=== PATIENT | female | born 1990 | race Caucasian/White ===

== ENCOUNTER → 2020-10-18 14:08 | Outpatient (BNVA) | payer MEDICAID, SELFPAY | PROVIDERS: Family Provider Family Medicine; Visit Provider Obstetrics & Gynecology | DX: Z32.01 Encounter for pregnancy test, result positive (principal) | CPT/HCPCS: 81025 ==

== ENCOUNTER → 2020-11-02 13:12 | Outpatient (BNVA) | payer MEDICAID, SELFPAY | PROVIDERS: Family Provider Family Medicine; Visit Provider Nurse Practitioner Women's Health | DX: O20.0 Threatened abortion (principal); O36.80X0 Pregnancy with inconclusive fetal viability, not applicable or unspecified; O99.211 Obesity complicating pregnancy, first trimester; Z3A.10 10 weeks gestation of pregnancy | CPT/HCPCS: 84315; 84702; 85027; 86850; 86900 ==

== ENCOUNTER → 2020-12-11 13:31 | Outpatient (BNVA) | payer MEDICAID, SELFPAY | PROVIDERS: Family Provider Family Medicine; Visit Provider Obstetrics & Gynecology | DX: O99.211 Obesity complicating pregnancy, first trimester (principal); Z34.80 Encounter for supervision of other normal pregnancy, unspecified trimester | CPT/HCPCS: 80307; 82950; 84315; 86592; 86762; 86803; 87086; 87340; 87491; 87591; 87806 ==

== ENCOUNTER → 2021-01-03 11:37 | Outpatient (BNVA) | payer MEDICAID, SELFPAY | PROVIDERS: Family Provider Family Medicine; Visit Provider Obstetrics & Gynecology | DX: Z34.80 Encounter for supervision of other normal pregnancy, unspecified trimester (principal) | CPT/HCPCS: 81000 ==

== ENCOUNTER → 2021-01-05 11:05 | Outpatient (BNVA) | payer MEDICAID, SELFPAY | PROVIDERS: Family Provider Family Medicine; Visit Provider Nurse Practitioner Women's Health | DX: O99.212 Obesity complicating pregnancy, second trimester; Z3A.16 16 weeks gestation of pregnancy | CPT/HCPCS: 82105; 84315 ==

== ENCOUNTER → 2021-02-02 10:05 | Outpatient (BNVA) | payer MEDICAID, SELFPAY | PROVIDERS: Family Provider Family Medicine; Visit Provider Obstetrics & Gynecology | DX: Z34.92 Encounter for supervision of normal pregnancy, unspecified, second trimester (principal); Z3A.21 21 weeks gestation of pregnancy | CPT/HCPCS: 76805 ==

== ENCOUNTER → 2021-03-05 14:24 | Outpatient (BNVA) | payer MEDICAID, SELFPAY | PROVIDERS: Family Provider Family Medicine; Visit Provider Obstetrics & Gynecology | DX: Z34.80 Encounter for supervision of other normal pregnancy, unspecified trimester (principal) | CPT/HCPCS: 82950; 84315 ==

== ENCOUNTER 2021-03-10 18:40 | Emergency (ER) | payer MEDICAID, SELFPAY ==
[2021-03-10 18:51] VITALS: BP 125/78; PULSE 94; RESP 18; TEMP 36.9; O2SAT 99; BMI 45.3
[2021-03-10 20:22] VITALS: BP 132/83; PULSE 77; RESP 18; O2SAT 100
[2021-03-10 20:28] LABS: Add Urine Microscopic? YES; Bilirubin Urine Neg (Negative); Blood Urine Neg (Negative); Glucose Urine UA Norm (Normal); Ketones Urine Negative (Negative); Leukocyte Esterase Urine 2+ (Negative); Nitrate Urine Negative (Negative); Protein Urine Neg (Negative); Specific Gravity, Urine 1.015 (1.005-1.030); Urine Color Yellow (Yellow); Urobilinogen Urine Norm (Negative); pH Urine 7 (5-7)
[2021-03-10 20:30] LABS: Add Urine Culture? No; Bacteria Urine 3+ /hpf; RBC Urine 0-4 /hpf (0-2); Squamous Epithelial Cell Urine TOO NUMEROUS TO CNT /hpf (0-5); WBC Urine >100 /hpf (0-5)
[2021-03-10 20:47] VITALS: BP 104/70; PULSE 891; RESP 16; O2SAT 99
[2021-03-10] MEDS: lidocaine 2% viscous 15 ML, aluminum-mag hydrox-simethicon 30 ML, sucralfate oral liq 1 GM PO (20:57)
[2021-03-10 21:14] LABS: Basophils % 0.5 %; Eosinophils % 0.5 %; Hematocrit 33.5 % (37.0-47.0); Hemoglobin 10.3 g/dL (11.5-15.3); Lymphocytes # 1.5 10^3/uL (0.8-4.8); Lymphocytes % 17.2 %; Mean Corpuscular HGB Conc 30.7 g/dL (30.0-36.0); Mean Corpuscular Hemoglobin 25.5 pg (28.0-34.0); Mean Corpuscular Volume 82.9 fL (81-99); Mean Platelet Volume 11.3 fL (7.4-10.4); Monocytes # 0.3 10^3/uL (0.2-0.9); Monocytes % 3.9 %; Neutrophils # 6.85 10^3/uL (1.8-7.7); Neutrophils % 77.7 %; Nucleated Red Blood Cells % 0 %; Platelet Count 136 10^3/cmm (130-400); Red Blood Count 4.04 10^6/uL (4.1-5.3); Red Cell Distribution Width 13.3 % (12.1-15.1); White Blood Count 8.8 10^3/uL (4.0-10.0)
[2021-03-10 21:32] LABS: Alanine Aminotransferase < 5 U/L (0-33); Albumin Level 3.4 g/dL (3.5-5.2); Alkaline Phosphatase 80 IU/L (35-105); Anion Gap 13.4 (5-19); Aspartate Amino Transferase 8 U/L (0-32); Blood Urea Nitrogen 5 mg/dL (6-20); C Reactive Protein 20.1 mg/L (0.0-4.9); Calcium 8.2 mg/dL (8.5-10.5); Carbon Dioxide 20 mmol/L (22-29); Chloride 103 mmol/L (98-107); Globulin 3.5 g/dL (1.3-4.6); Glomerular Filtration Rate 264.9 mL/min (90-130); Glucose 86 mg/dL (65-115); Lipase 18 U/L (13-60); Osmolality Calculated 273 mOsm/kg (285-295); Potassium 3.4 mmol/L (3.5-5.1); Sodium 133 mmol/L (136-145); Total Bilirubin 0.2 mg/dL (0.15-1.2); Total Protein 6.9 g/dL (6.6-8.7)
[2021-03-10 21:43] LABS: Slide Review Slide Review Perform
[2021-03-10 21:52] LABS: Charge for UA Resulting for Rev
[2021-03-10 22:05] LABS: Add Urine Microscopic? YES; Bilirubin Urine Neg (Negative); Blood Urine Neg (Negative); Glucose Urine UA Norm (Normal); Ketones Urine Negative (Negative); Leukocyte Esterase Urine Trace (Negative); Nitrate Urine Negative (Negative); Protein Urine Neg (Negative); Urine Appearance Clear (CLEAR); Urine Color Yellow (Yellow); Urobilinogen Urine Norm (Negative); pH Urine 6 (5-7)
--- NOTE | 2021-03-10 22:39 | ED_ITS ---
HPI - Abdominal Pain General: Chief Complaint: Abdominal Pain Stated Complaint: gallbladder issue 26 weeks Time Seen by Provider: 03/10/21 20:22 Source: patient and family (mother) Mode of arrival: ambulatory Limitations: no limitations History of Present Illness: HPI narrative: This is a 30-year-old female patient 3 para 2 at 26 weeks gestation who presents to the emergency department with sudden onset upper abdominal pain. The pain woke her up from sleep this evening and she initially thought the pain would go but the pain did not get better so she came to the emergency department to be evaluated. The pain is located in the upper abdomen and radiates to both flanks. No nausea or vomiting. No diarrhea or constipation. No fever. No other symptoms. She has a prior history of gallbladder disease. No prior history of kidney disease MD elicited complaint: abdominal pain Pertinent past history: none Onset (ago): hour(s) (3) Pain Consistency: constant Location: Epigastric and LUQ Severity: severe Quality: stabbing Radiation: bilateral flank Migration to: no migration Exacerbating factors: nothing Relieving factors: nothing Associated Symptoms: Denies anorexia, belching, bloating, change in bowel habits, change in stool character, chills, coffee ground emesis, constipation, GI cramping, diarrhea, dyspepsia, dysuria, excessive flatus, fever(s), heartburn, hematochezia, hematuria, hematemesis, fecal incontinence, loose stools, melena, nausea, poor appetite, syncope and vomiting Related Data: Date of Last Menstrual Period: 09/25/20 Review of Systems General: Reports: 10 or more systems reviewed and unremarkable except in HPI and below Const: Denies: fever(s) or chills Card: Denies: syncope GI: Denies: nausea, vomiting, hematemesis, coffee ground emesis, heartburn, diarrhea, constipation, bloating, GI cramping, belching, excessive flatus, fecal incontinence, change in bowel habits, change in stool character, hematochezia or melena : Denies: dysuria or hematuria PFS ED PFSH: Medical History No pertinent past medical history neghx: htn,dm,thyroid,dvt/pe,herpes ----denies partner with herpes Surgical History No pertinent past surgical history Family History Father Hypertension Family/Other Hypertension Paternal Aunt Denies family history of Colon cancer Ovarian cancer Diabetes Heart disease Breast cancer Uterine cancer Thyroid disease Stroke Social History Smoking and tobacco status: never smoked Alcohol intake: never Female Reproductive History: Date of last menstrual period: 09/25/20 Physical Exam Const: COMMON NORMALS: no acute distress, average body habitus, patient oriented x3, no limitations, healthy appearing, alert and well nourished HENMT: COMMON NORMALS: normocephalic, atraumatic and moist oral mucous membranes HEAD & SCALP: normocephalic and atraumatic Neck/C-Spine: COMMON NORMALS: no meningeal signs and no JVD Resp: COMMON NORMALS: normal respiratory effort, No retractions, No use of accessory muscles, clear to auscultation bilaterally and percussion normal AUSCULTATION: clear to auscultation bilaterally PERCUSSION: percussion normal Cardio: COMMON NORMALS: no JVD, regular rate, regular rhythm, S1 normal heart sound present, S2 normal heart sound present, No gallops present (Cardio), No clicks present (Cardio), No murmurs present (Cardio), No rub (Cardio) and Peripheral pulses 2+ throughout RATE: regular rate RHYTHM: regular rhythm HEART SOUNDS: S1 normal heart sound present and S2 normal heart sound present PERIPHERAL PULSES: Peripheral pulses 2+ throughout GI: COMMON NORMALS: Normal to inspection, nondistended, normoactive bowel sounds present, Soft to palpation, No hepatosplenomegaly present, no masses and no bruits PALPATION: Yes Soft to palpation, Yes Tenderness to palpation present (GI) (Epigastric) Details: LUQ and Yes No hepatosplenomegaly present Extremity: COMMON NORMALS: normal to inspection, full ROM, capillary refill normal, no calf tenderness and no pedal edema Neuro: COMMON NORMALS: patient oriented x3 SENSORIUM/ORIENTATION: Yes alert MENINGEAL SIGNS: Yes no meningeal signs Course Reevaluation(s): Reevaluation #1: Discussed her lab findings with her, negati ve for acute findings other than possible UTI. Pain improved significantly following a GI cocktail. I believe she has gastritis, and that is a cause for her abdominal pain. Since she also has an incidental UTI we will treat with antibiotics. She voiced understanding and is in agreement with the plan Time: 22:39 Vital Signs: Vital signs: Vital Signs Temperature 98.4 F 03/10/21 18:51 Pulse Rate 91 03/10/21 22:57 Respiratory Rate 15 03/10/21 22:57 Blood Pressure 120/77 03/10/21 22:57 Pulse Oximetry 91 03/10/21 22:57 MDM - Abdominal Pain MDM Narrative: Medical decision making narrative: 30-year-old female patient who is 26 weeks and presents with upper abdominal pain that started this evening. Evaluation in the emergency department is unremarkable and pain improved with a GI cocktail. She probably has acute gastritis and she also had an incidental finding of a UTI. She was treated for the UTI. 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 Medical Records: Attestation: I reviewed the patient's medical records. Lab Data: Attestation: I reviewed the patient's lab results. Labs: Lab Results 03/10/21 03/10/21 03/10/21 Range/Units 20:00 21:05 21:05 WBC 8.8 (4.0-10.0) 10^3/ uL RBC 4.04 L (4.1-5.3) 10^6/u L Hgb 10.3 L (11.5-15.3) g/dL Hct 33.5 L (37.0-47.0) % MCV 82.9 (81-99) fL MCH 25.5 L (28.0-34.0) pg MCHC 30.7 (30.0-36.0) g/dL RDW 13.3 (12.1-15.1) % Plt Count 136 (130-400) 10^3/c mm MPV 11.3 H (7.4-10.4) fL Neut % (Auto) 77.7 % Lymph % (Auto) 17.2 % Mccreary % (Auto) 3.9 % Eos % (Auto) 0.5 % Baso % (Auto) 0.5 % Neut # (Auto) 6.85 (1.8-7.7) 10^3/u L Lymph # (Auto) 1.5 (0.8-4.8) 10^3/u L Mccreary # (Auto) 0.3 (0.2-0.9) 10^3/u L Eos # (Auto) 0.0 (0.0-0.8) 10^3/u L Baso # (Auto) 0.0 (0.0-0.1) 10^3/u L Nucleated RBC % (a uto) 0 % Nucleated RBCs # 0.0 /100WBC Sodium 133 L (136-145) mmol/L Potassium 3.4 L (3.5-5.1) mmol/L Chloride 103 (98-107) mmol/L Carbon Dioxide 20 L (22-29) mmol/L Anion Gap 13.4 (5-19) BUN 5 L (6-20) mg/dL Creatinine 0.3 L (0.5-0.9) mg/dL GFR Calculation 264.9 H (90-130) mL/min Glucose 86 (65-115) mg/dL Calculated Osmolal ity 273 L (285-295) mOsm/k g Calcium 8.2 L (8.5-10.5) mg/dL Total Bilirubin 0.2 (0.15-1.2) mg/dL AST 8 (0-32) U/L ALT < 5 (0-33) U/L Alkaline Phosphata se 80 (35-105) IU/L C-Reactive Protein 20.1 H (0.0-4.9) mg/L Total Protein 6.9 (6.6-8.7) g/dL Albumin 3.4 L (3.5-5.2) g/dL Globulin 3.5 (1.3-4.6) g/dL Lipase 18 (13-60) U/L Urine Color Yellow (Yellow) Urine Appearance Sl cloudy A (CLEAR) Urine pH 7 (5-7) Ur Specific Gravit y 1.015 (1.005-1.030) Urine Protein Neg (Negative) Urine Glucose (UA) Norm (Normal) Urine Ketones Negative (Negative) Urine Blood Neg (Negative) Urine Nitrate Negative (Negative) Urine Bilirubin Neg (Negative) Urine Urobilinogen Norm (Negative) mg/dL Ur Leukocyte Yuliya ase 2+ H (Negative) Urine RBC 0-4 H (0-2) /hpf Urine WBC >100 H (0-5) /hpf Ur Squamous Epith Cells Too numerous to c nt H (0-5) /hpf Amorphous Sediment Not Reportable Urine Bacteria 3+ H (NONE) /hpf 03/10/21 Range/Units 21:48 WBC (4.0-10.0) 10^3/ uL RBC (4.1-5.3) 10^6/u L Hgb (11.5-15.3) g/dL Hct (37.0-47.0) % MCV (81-99) fL MCH (28.0-34.0) pg MCHC (30.0-36.0) g/dL RDW (12.1-15.1) % Plt Count (130-400) 10^3/c mm MPV (7.4-10.4) fL Neut % (Auto) % Lymph % (Auto) % Mccreary % (Auto) % Eos % (Auto) % Baso % (Auto) % Neut # (Auto) (1.8-7.7) 10^3/u L Lymph # (Auto) (0.8-4.8) 10^3/u L Mccreary # (Auto) (0.2-0.9) 10^3/u L Eos # (Auto) (0.0-0.8) 10^3/u L Baso # (Auto) (0.0-0.1) 10^3/u L Nucleated RBC % (a uto) % Nucleated RBCs # /100WBC Sodium (136-145) mmol/L Potassium (3.5-5.1) mmol/L Chloride (98-107) mmol/L Carbon Dioxide (22-29) mmol/L Anion Gap (5-19) BUN (6-20) mg/dL Creatinine (0.5-0.9) mg/dL GFR Calculation (90-130) mL/min Glucose (65-115) mg/dL Calculated Osmolal ity (285-295) mOsm/k g Calcium (8.5-10.5) mg/dL Total Bilirubin (0.15-1.2) mg/dL AST (0-32) U/L ALT (0-33) U/L Alkaline Phosphata se (35-105) IU/L C-Reactive Protein (0.0-4.9) mg/L Total Protein (6.6-8.7) g/dL Albumin (3.5-5.2) g/dL Globulin (1.3-4.6) g/dL Lipase (13-60) U/L Urine Color Yellow (Yellow) Urine Appearance Clear (CLEAR) Urine pH 6 (5-7) Ur Specific Gravit y 1.020 (1.005-1.030) Urine Protein Neg (Negative) Urine Glucose (UA) Norm (Normal) Urine Ketones Negative (Negative) Urine Blood Neg (Negative) Urine Nitrate Negative (Negative) Urine Bilirubin Neg (Negative) Urine Urobilinogen Norm (Negative) mg/dL Ur Leukocyte Yuliya ase Trace H (Negative) Urine RBC (0-2) /hpf Urine WBC (0-5) /hpf Ur Squamous Epith Cells (0-5) /hpf Amorphous Sediment Urine Bacteria (NONE) /hpf Discharge Plan Discharge Patient Disposition: Home Clinical Impression: Acute gastritis Qualifiers: Gastritis type: unspecified gastritis Gastritis bleeding: without bleeding Qualified Code(s): K29.00 - Acute gastritis without bleeding UTI (urinary tract infection) during Qualifiers: Trimester: third trimester Qualified Code(s): O23.43 - Unspecified infection of urinary tract in , third trimester Condition: Stable Prescriptions: New Augmentin 500-125 mg tablet 1 tab PO BID Qty: 14 RF: 0 Continued prenat.vits,carissa,[id number] Tablet 1 tab PO DAILY RF: 0 Discharge Orders: Discharge ED (Routine); Ordered 03/10/21 Ordered By: Laura Small Referrals: Marisol Dallas MD [Primary Care Provider] - 1-3 days Discharge Diet: As Directed Discharge Activity: Increase activity as tolerated Patient Instructions: Gastritis (ED), Urinary Tract Infection in Women (ED), Diet for Ulcers and Gastritis (ED) Activity Restrictions/Additional Instructions: Return for any new or worsening symptoms. Follow-up with your primary care provider within 3 days. Take your medications as prescribed. Follow the diet as advised. Coding Level of Care Code ED Fish Cake Maker for Janna Aviles
[2021-03-10] MEDS: cefTRIAXone 1,000 MG in lidocaine 1% 2.1 ML 2.1 MG IM (22:51)
[2021-03-10 22:57] VITALS: BP 120/77; PULSE 91; RESP 15; O2SAT 91
== END 2021-03-10 22:58 | disposition home or self-care (01) ==
PROVIDERS: Emergency Provider Family Medicine; PCP Family Medicine
DX: O23.42 Unspecified infection of urinary tract in pregnancy, second trimester (principal); O26.892 Other specified pregnancy related conditions, second trimester; K29.00 Acute gastritis without bleeding; Z3A.26 26 weeks gestation of pregnancy
CPT/HCPCS: 80053; 81001; 81003; 83690; 85025; 86140; 96372; 99283; J0696

== ENCOUNTER → 2021-03-26 14:42 | Outpatient (BNVA) | payer MEDICAID, SELFPAY | PROVIDERS: PCP Family Medicine; Visit Provider Obstetrics & Gynecology | DX: Z34.80 Encounter for supervision of other normal pregnancy, unspecified trimester (principal) | CPT/HCPCS: 84315; 85025 ==

== ENCOUNTER 2021-05-04 17:30 | Outpatient (CLI) | payer MEDICAID, SELFPAY ==
[2021-05-04 17:30] VITALS: BMI 38.0
[2021-05-04 17:54] VITALS: BP 125/70; PULSE 96
[2021-05-04 18:21] VITALS: BP 128/65; PULSE 85
[2021-05-04 18:32] LABS: Bilirubin Urine Neg (Negative); Blood Urine Neg (Negative); Glucose Urine UA Norm (Normal); Ketones Urine Negative (Negative); Leukocyte Esterase Urine Negative (Negative); Nitrate Urine Negative (Negative); Protein Urine Neg (Negative); Squamous Epithelial Cell Urine 0-4 /hpf (0-5); Urine Appearance Clear (CLEAR); Urine Color Yellow (Yellow); Urobilinogen Urine Norm (Negative); pH Urine 6 (5-7)
[2021-05-04 18:33] LABS: Add Urine Culture? No
== END 2021-05-04 18:45 | disposition home or self-care (01) ==
LOC: OPOB 17:38 → OBGYN 17:39
PROVIDERS: PCP Family Medicine; Visit Provider Obstetrics & Gynecology
DX: O26.899 Other specified pregnancy related conditions, unspecified trimester (principal); Z3A.00 Weeks of gestation of pregnancy not specified; R52 Pain, unspecified
CPT/HCPCS: 59025; 81001; 99211

== ENCOUNTER 2021-05-28 16:10 | Outpatient (CLI) | payer MEDICAID, SELFPAY ==
[2021-05-28 16:23] VITALS: BP 114/70; PULSE 100
[2021-05-28 16:24] VITALS: RESP 18; TEMP 36.8
[2021-05-28 16:25] VITALS: BMI 46.5
[2021-05-28 16:53] VITALS: BP 116/65; PULSE 95
[2021-05-28 17:23] VITALS: BP 116/72; PULSE 104
--- NOTE | 2021-05-28 17:40 | P.PCN_ITS ---
Procedure/Consent Procedure Narrative: NONSTRESS TEST: [place] of [place] [facility] [place] [facility] [place] Indication: 30-year-old 4 para 2-0-1-2 at 37 weeks and 2 days, abdominal pain, Date and time of test: 05/28/2021, 5:15 PM Baseline: 135 Variability: Moderate variability Accelerations: Accelerations present Decelerations: No decelerations Tocometry: No contractions INTERPRETATION: NST reactive, continue kick counts
[2021-05-28 17:54] VITALS: BP 116/72; PULSE 104; RESP 18; TEMP 36.8
== END 2021-05-28 17:55 | disposition home or self-care (01) ==
LOC: OPOB 16:15 → OBGYN 16:15
PROVIDERS: Absent Provider Obstetrics & Gynecology; PCP Family Medicine; Visit Provider Obstetrics & Gynecology
DX: O26.899 Other specified pregnancy related conditions, unspecified trimester (principal); Z3A.00 Weeks of gestation of pregnancy not specified; R10.9 Unspecified abdominal pain
CPT/HCPCS: 59025; 83986; 84315; 87081; 99211

== ENCOUNTER 2021-06-05 14:50 | Outpatient (CLI) | payer MEDICAID, SELFPAY ==
[2021-06-05 15:00] VITALS: BMI 46.0
[2021-06-05 15:06] VITALS: BP 109/55; PULSE 94; RESP 16; TEMP 36.4
[2021-06-05 15:11] VITALS: RESP 16
[2021-06-05 15:36] VITALS: BP 112/61; PULSE 99
[2021-06-05 16:07] VITALS: BP 129/68; PULSE 93
[2021-06-05 16:36] VITALS: BP 140/71; PULSE 90
[2021-06-05 16:59] VITALS: BP 107/61; PULSE 90
== END 2021-06-05 17:02 | disposition home or self-care (01) ==
LOC: OPOB 14:58 → OBGYN 15:00
PROVIDERS: PCP Family Medicine; Visit Provider Obstetrics & Gynecology
DX: O36.8390 Maternal care for abnormalities of the fetal heart rate or rhythm, unspecified trimester, not applicable or unspecified (principal); Z3A.00 Weeks of gestation of pregnancy not specified
CPT/HCPCS: 59025; 84315; 99211

== ENCOUNTER 2021-06-09 18:12 | Outpatient (CLI) | payer MEDICAID, SELFPAY ==
[2021-06-09] VITALS (35 sets, daily range): BP systolic 111–150; BP diastolic 59–81; PULSE 84–103; TEMP 36.9; O2SAT 87–100; BMI 46.3
[2021-06-09 18:55] LABS: Basophils % 0.2 %; Eosinophils % 0.2 %; Hematocrit 35.4 % (37.0-47.0); Lymphocytes # 0.8 10^3/uL (0.8-4.8); Lymphocytes % 19.5 %; Mean Corpuscular HGB Conc 31.1 g/dL (30.0-36.0); Mean Corpuscular Hemoglobin 24.2 pg (28.0-34.0); Mean Platelet Volume 10.4 fL (7.4-10.4); Monocytes # 0.2 10^3/uL (0.2-0.9); Neutrophils # 3.18 10^3/uL (1.8-7.7); Neutrophils % 75.6 %; Nucleated Red Blood Cells % 0 %; Platelet Count 150 10^3/cmm (130-400); Red Blood Count 4.54 10^6/uL (4.1-5.3); Red Cell Distribution Width 15.4 % (12.1-15.1); White Blood Count 4.2 10^3/uL (4.0-10.0)
[2021-06-09 19:15] LABS: SARS Covid-2 Antigen Positive (Negative)
[2021-06-09] MEDS: lactated ringers 1,000 ML 999 ML IV (19:15)
[2021-06-09 19:24] LABS: Alanine Aminotransferase 15 U/L (0-33); Albumin Level 3.1 g/dL (3.5-5.2); Alkaline Phosphatase 194 IU/L (35-105); Anion Gap 16.8 (5-19); Aspartate Amino Transferase 24 U/L (0-32); Blood Urea Nitrogen 6 mg/dL (6-20); Carbon Dioxide 19 mmol/L (22-29); Chloride 107 mmol/L (98-107); Globulin 3.5 g/dL (1.3-4.6); Glomerular Filtration Rate 85.4 mL/min (90-130); Glucose 79 mg/dL (65-115); Osmolality Calculated 285 mOsm/kg (285-295); Potassium 3.8 mmol/L (3.5-5.1); Sodium 139 mmol/L (136-145); Total Bilirubin 0.3 mg/dL (0.15-1.2); Total Protein 6.6 g/dL (6.6-8.7)
[2021-06-09 19:30] LABS: Bilirubin Urine Neg (Negative); Blood Urine Neg (Negative); Glucose Urine UA Norm (Normal); Ketones Urine 2+ (Negative); Nitrate Urine Negative (Negative); Protein Urine Trace (Negative); Specific Gravity, Urine 1.015 (1.005-1.030); Urine Appearance Clear (CLEAR); Urine Color Yellow (Yellow); Urobilinogen Urine 1 mg/dL (Negative); pH Urine 6 (5-7)
[2021-06-09 19:31] LABS: Add Urine Microscopic? YES; Leukocyte Esterase Urine Trace (Negative)
[2021-06-09 19:35] LABS: Add Urine Culture? No; Bacteria Urine 2+ /hpf; Mucus Urine 2+ /hpf; RBC Urine 0-4 /hpf (0-2); Squamous Epithelial Cell Urine 25-40 /hpf (0-5); WBC Urine 15-25 /hpf (0-5)
[2021-06-09] MEDS: ondansetron 2 mg/ML SDV 2 mL 8 MG IVP (20:14)
--- NOTE | 2021-06-09 21:15 | PC.NURSE ---
This nurse educated pt on isolating at home, mask wearing, call local health department for recommendation on how long to isolate. Stated that she needs to call clinic on friday to inform of covid positive results so that her appointments can to adjusted. Educated about bland diet, small frequent meals and plenty of fluid. Educated that if she experience increase in N/V, SOB or fever she should be seen in the ER. Informed pt that Phenergan script will be called into her preferred pharmacy. Educated on Phenergan, dose, how often she can take
--- NOTE | 2021-06-11 09:12 | PC.NURSE ---
Called in prescription for phenergan 25 mg PO Q6H PRN for nausea. dispense 20 tabs, no refills. Called in to [facility] pharmacy. Ordering provider Dr. Lopez.
[2021-06-12 03:57] LABS: Quest SARS-CoV-2 RNA DETECTED (NOT DETECTED)
== END 2021-06-09 21:35 | disposition home or self-care (01) ==
LOC: OPOB 18:23 → OBGYN 18:24
PROVIDERS: PCP Family Medicine; Visit Provider Obstetrics & Gynecology
DX: O26.899 Other specified pregnancy related conditions, unspecified trimester (principal); Z3A.00 Weeks of gestation of pregnancy not specified; R50.9 Fever, unspecified; R11.2 Nausea with vomiting, unspecified
CPT/HCPCS: 36415; 59025; 80053; 81001; 85025; 87426; 87635; 96361; 96374; 99211; J2405

== ENCOUNTER 2021-06-13 06:32 | Inpatient (IN) | payer MEDICAID, SELFPAY ==
[2021-06-13] VITALS (126 sets, daily range): BP systolic 99–144; BP diastolic 55–86; PULSE 86–139; RESP 16–25; TEMP 36.1–38; O2SAT 95–100; BMI 43.1
[2021-06-13] MEDS: lactated ringers 1,000 ML 999 ML IV ×3 (07:02→10:42)
[2021-06-13 07:45] LABS: Basophils % 0.3 %; Hematocrit 36.5 % (37.0-47.0); Hemoglobin 11.4 g/dL (11.5-15.3); Lymphocytes % 16.6 %; Mean Corpuscular HGB Conc 31.2 g/dL (30.0-36.0); Mean Corpuscular Hemoglobin 24.2 pg (28.0-34.0); Mean Corpuscular Volume 77.5 fL (81-99); Mean Platelet Volume 10.8 fL (7.4-10.4); Monocytes # 0.2 10^3/uL (0.2-0.9); Monocytes % 4.2 %; Neutrophils # 4.47 10^3/uL (1.8-7.7); Nucleated Red Blood Cells % 0 %; Platelet Count 148 10^3/cmm (130-400); Red Blood Count 4.71 10^6/uL (4.1-5.3); Red Cell Distribution Width 15.9 % (12.1-15.1); White Blood Count 5.7 10^3/uL (4.0-10.0)
--- NOTE | 2021-06-13 07:47 | PM.OPHPUD ---
Labor & Delivery H&P Update Date of Procedure: June 13, 2021 Date H&P Performed: 06/05/21 H&P update information: I have reviewed H&P completed within last 30 days, I have examined patient prior to procedure and Changes to prior documentation as noted here (cervix is now 5/80/-2. she is in active labor. She is also covid positive 06/09/21) Admission Diagnosis:
[2021-06-13 08:08] LABS: Slide Review Slide Review Perform
[2021-06-13] MEDS: dextrose 5%-lactated ringers 1,000 ML 125 ML IV (09:02)
--- NOTE | 2021-06-13 09:13 | ANES.PREANE2 ---
Pre-Anesthetic Assessment Pre-Anesthetic Assessment: Height/Weight: Height 1.57 m Weight 107.048 kg Temp Pulse BP Pulse Ox 97.3 F L 112 H 110/55 98 06/13/21 09:06 06/13/21 09:10 06/13/21 09:04 06/13/21 09:10 Was Beta Ziyad taken within 24 hours: N/A Was Clonidine taken within 24 hours: N/A Social: Social History: No alcohol and No tobacco Exam: Pre-Anes Outpt Exam: alert, oriented x 3, clear to auscultation bilaterally and regular rate & rhythm Airway: Submandibular: WNL Cervical ROM: WNL MP: 2 Dentition: Full Pulmonary: Pulmonary: Cough Comments: Covid-19 CV/HEM: CV/HEM: Anemia Metabolic: Metabolic: Morbid obesity Anesthetic Plan: ASA status: 2 Anesthesia: Regional (specify below) (Labor epidural) Risk of > 500 ml blood loss (7ml/kg in children): No Meds/Allergies Current Medications: Current Medications Generic Name Dose Route Start Last Admin Trade Name Freq PRN Reason Stop Dose Admin Dextrose/Lactated Ringer's 1,000 mls @ 125 m ls/hr 06/13/21 06:28 06/13/21 09:02 Dextrose 5%-Lact ated Ringers IV 125 mls/hr .Q8H PRN Administration Labor Lactated Ringer's 1,000 mls @ 999 m ls/hr 06/13/21 06:28 06/13/21 09:09 Lactated Ringers IV Infused .Q1H1M PRN Infusion Per L&D Rescitati on Protocol Ropivacaine 200 mg in 100 mls @ 13 mls/hr 06/13/21 06:34 06/13/21 08:40 Naropin Premix EPIDURAL 13 mls/hr .Q7H42M PRN Administration ANESTHESIA Lactated Ringer's 1,000 mls @ 999 m ls/hr 06/13/21 06:34 06/13/21 08:06 Lactated Ringers IV Infused .Q1H1M PRN Infusion See label comment s PFSH Anesthesia PFSH: Medical History No pertinent past medical history neghx: htn,dm,thyroid,dvt/pe,herpes ----denies partner with herpes Surgical History No pertinent past surgical history Family History Father Hypertension Family/Other Hypertension Paternal Aunt Denies family history of Colon cancer Ovarian cancer Diabetes Heart disease Breast cancer Uterine cancer Thyroid disease Stroke Social History (Updated 06/05/21 @ 14:17 by Mabel James RN) Smoking and tobacco status: never smoked Alcohol intake: never Female Reproductive History: Date of last menstrual period: 09/25/20 : 4 Data Anesthesia CBC & Chem 7: 06/13/21 07:10 Other Labs: Laboratory Results - last 48 hr 06/13/21 07:10 WBC 5.7 RBC 4.71 Hgb 11.4 L Hct 36.5 L MCV 77.5 L MCH 24.2 L MCHC 31.2 RDW 15.9 H Plt Count 148 MPV 10.8 H Neut % (Auto) 78.0 Lymph % (Auto) 16.6 Alexander % (Auto) 4.2 Eos % (Auto) 0.0 Baso % (Auto) 0.3 Neut # (Auto) 4.47 Lymph # (Auto) 1.0 Alexander # (Auto) 0.2 Eos # (Auto) 0.0 Baso # (Auto) 0.0 Nucleated RBC % (auto) 0 Nucleated RBCs # 0.0 Cardiac Studies: No Data to Display
--- NOTE | 2021-06-13 09:14 | ANES.PROC ---
Anesthesia Procedures Procedure/Date: 06/13/21 Epidural: Time Out Performed: Yes Consents Signed: Procedure Consent Consent: requested by attending/covering physician, from patient, risks and benefits reviewed and patient agrees to proceed Lumbar Level: L3-L4 Epidural position: sitting Epidural procedure: sterile prep of area, 1% lidocaine to numb the area, 18 g needle, neg for paresthesia, test dose given, 1.5% xylocaine 1:200k epi, placed PCEA, no systemic response, sterile dressing applied and 0.2% Ropiavacaine @ mls/hr (13) Additional Comments: EMILIO at 6cm, cath at 11cm. bolused 5mls 2% lido.
[2021-06-13] MEDS: cetylpyridinium Lozenge 1 EACH MUCOUS MEM ×2 (09:53→17:40)
[2021-06-13] MEDS: guaiFENesin 100 mg/5 mL UDC 10 mL 200 MG PO ×3 (09:53→21:25)
[2021-06-13] MEDS: acetaminophen 325 mg Tablet 650 MG PO (10:57)
[2021-06-13] MEDS: oxytocin 30 UNIT/500 ML BAG IV (11:44)
--- NOTE | 2021-06-13 11:53 | PC.NURSE ---
1134- notified to be at delivery per . 1140- Arrives to bedside
--- NOTE | 2021-06-13 14:49 | PM.DELIVERY ---
Delivery Note: Date of delivery: June 13, 2021 Pre-delivery diagnoses: iup at 39 4/7 weeks, obesity, anemia, covid 19 + Post-delivery diagnoses: same- delivered Procedure: Op report anesthesia: Epidural Delivering Physician: mel Estimated blood loss (mL): 20 Findings: term female in the cephalic presentation with a single nuchal cord, shoulder and body cord Pre-Delivery Course: The patient was admitted in active labor. She tested positive for covid 19 over the weekend. When she was about 7 cm, she began to have large, deep decelerations. she was repositioned and it helped for a time and then, it occurred after every contraction. I attempted SROM, but was unable to perform it due to the high station of the baby. She was 8 cm at this time. We set her up and began pushing with the hope that moving the baby down would stop the decelerations. The remainder of the time, the baby had good variability with accelerations. It was only after a contraction that the heart rate would drop. The cervix didn't change and the patient was put in high fowlers and then the peanut ball. Finally, she had complete cervical dilation. the baby continued to have these deep decelerations. Delivery: The patient had complete cervical dilation and began to push. The head delivered in the IVANA position over an intact perineum under epidural anesthesia. The nose and mouth were bulb suctioned. A single nuchal cord was reduced at the perineum. The shoulders and body delivered atraumatically and there was an additional shoulder and body cord present at delivery. The baby was placed onto the mother's abdomen. The cord was clamped and cut. . The placenta delivered spontaneously. It was inspected and found to be intact. Due to the maternal covid 19 positivity, the placenta was sent to pathology. Inspection of the perineum revealed it to be intact. Estimated blood loss 20. Apgars on baby were 8 at 1 minute and 9 at 5 minutes. Weight of baby is 6 pounds 13 ounces. Mother and baby were stable post delivery. Coding Level of Care Code Acute Web Services Professional for Janna Aviles
[2021-06-13] MEDS: ibuprofen 800 mg tablet PO ×2 (16:18→21:24)
--- NOTE | 2021-06-13 17:03 | ANE.PACU2 ---
Inpatient post-anesthesia follow up: Airway intact: Yes Vital signs: Temperature 98.8 F Pulse Rate 104 Respiratory Rate 18 Blood Pressure 135/65 Pulse Oximetry 98 Oxygen Delivery Me thod Non-Rebreather Oxygen Flow Rate 10 Fraction of Inspir ed Oxygen Hydration adequate: Yes Nausea and vomiting: No Pain level: 1 Mental status: Baseline
[2021-06-13] MEDS: docusate sodium 100 mg Capsule PO (17:40)
[2021-06-14] VITALS (9 sets, daily range): BP systolic 120–129; BP diastolic 72–83; PULSE 83–96; RESP 16; TEMP 35–36.8; O2SAT 95–96
[2021-06-14] MEDS: guaiFENesin 100 mg/5 mL UDC 10 mL 200 MG PO ×2 (01:38→09:28)
[2021-06-14 01:53] LABS: Hematocrit 32.2 % (37.0-47.0); Hemoglobin 10.1 g/dL (11.5-15.3); Mean Corpuscular HGB Conc 31.4 g/dL (30.0-36.0); Mean Corpuscular Hemoglobin 24.4 pg (28.0-34.0); Mean Corpuscular Volume 77.8 fL (81-99); Mean Platelet Volume 10.2 fL (7.4-10.4); Platelet Count 145 10^3/cmm (130-400); Red Blood Count 4.14 10^6/uL (4.1-5.3); Red Cell Distribution Width 16.1 % (12.1-15.1); White Blood Count 6.7 10^3/uL (4.0-10.0)
[2021-06-14] MEDS: prenatal vitamin Capsule 1 CAP PO (09:27)
[2021-06-14] MEDS: ibuprofen 800 mg tablet PO (09:28)
[2021-06-14] MEDS: docusate sodium 100 mg Capsule PO (09:28)
[2021-06-14 10:32] LABS: ABG PCO2 34.8 mmHg (35-45); ABG PH Result 7.41 (7.35-7.45); Arterial Blood Gas Hematocrit 31.4 % (37-47); Blood Gas Allen Test Pos; Blood Gas Operator Identificat MONRO; Blood Gas Sample Site Radial, left; Blood Gas Sample Type Arterial; HCO3 ABG 22.2 mmol/L (22-26); Oxygen Device ROOM AIR; PO2 ABG 72.7 mmHg (80.0-100.0)
--- NOTE | 2021-06-14 11:18 | P.CONIM_ITS ---
Providers/Reason For Consult Consulting Physician/Specialty*: Beau Owusu MD, hospitalist medicine Reason for Consult*: Covid positive Attending Physician: Ladan Leo MD Primary Care Provider: Marisol Dallas MD History of Present Illness History of Present Illness Karen Hardy is a 30 year old female who presented gravid to labor and delivery in active labor and delivered a baby girl by spontaneous vaginal delivery at 39- 4/7 weeks. She was noted to have a positive Covid test on screening. She had been ill perhaps 1 week. She had reported some mild shortness of breath prior to delivery at home with exertion, coughing, low-grade temperatures. She reports her has been ill as well. She reports that currently she feels very good, and has been up and about the room without any significant shortness of breath. Review of Systems General: Reports: 10 or more systems reviewed and unremarkable except in HPI and below Const: Reports: fever(s) (Although none currently) and chills Eyes: Denies: change in vision ENMT: Denies: throat pain Card: Denies: chest pain Resp: Reports: dyspnea (Although not currently) GI: Denies: abdominal pain : Denies: flank pain Musc: Denies: neck pain Skin/Breast: Denies: rash Neuro: Denies: headache(s) Psych: Denies: anxiety Endo: Denies: polyuria Florentin/Lymph: Denies: easy bruising All/Imm: Denies: urticaria Meds/Allergies Home Medications and Allergies Home Medications Medication Instructions Recorded Confirmed Last Taken Type prenat.vits,carissa,cyl-gybt-zabue 1 tab PO DAILY 11/02/20 06/14/21 06/04/21 21:00 History ferrous sulfate 325 mg (65 mg 325 mg PO TID #60 tab 04/09/21 06/14/21 06/04/21 21:00 Rx iron) tablet acetaminophen 325 mg PO Q4H PRN #60 cap 06/14/21 Unknown Rx docusate sodium [Colace] 100 mg PO BID #60 cap 06/14/21 Unknown Rx ibuprofen 800 mg PO TID PRN #60 tab 06/14/21 Unknown Rx Allergies Allergy/AdvReac Type Severity Reaction Status Date / Time No Known Allergies Allergy Verified 06/09/21 19:08 Current Medications Current Medications Generic Name Dose Route Start Last Admin Trade Name Freq PRN Reason Stop Dose Admin Acetaminophen 650 mg 06/13/21 06:28 06/13/21 10:57 Acetaminophen 325 Mg Tablet PO 650 mg Q6H PRN Administration Mild pain or temp > 100.4 Benzocaine 1 each 06/13/21 09:15 06/13/21 17:40 Cetylpyridinium Lozenge MUCOUS MEM 1 each Q2H PRN Administration SORE THROAT Docusate Sodium 100 mg 06/13/21 18:00 06/14/21 09:28 Docusate Sodium 100 Mg Capsule PO 100 mg BID MIKE Administration Guaifenesin 200 mg 06/13/21 09:15 06/14/21 09:28 Guaifenesin 100 Mg/5 Ml Udc 10 Ml PO 200 mg Q4H PRN Administration COUGH AND CONGESTION Dextrose/Lactated Ringer's 1,000 mls @ 125 mls/hr 06/13/21 06:28 06/13/21 15:51 Dextrose 5%-Lactated Ringers IV Infused .Q8H PRN Infusion Labor Oxytocin 30 unit in 500 mls @ 600 mls/hr 06/13/21 06:28 06/13/21 14:00 Pitocin IV 60 mls/hr .Q50M PRN Titration After delivery of infant Protocol Lactated Ringer's 1,000 mls @ 999 mls/hr 06/13/21 06:28 06/13/21 15:51 Lactated Ringers IV Infused .Q1H1M PRN Infusion Per L&D Rescitation Protocol Ropivacaine 200 mg in 100 mls @ 13 mls/hr 06/13/21 06:34 06/13/21 13:26 Naropin Premix EPIDURAL Infused .Q7H42M PRN Infusion ANESTHESIA Lactated Ringer's 1,000 mls @ 999 mls/hr 06/13/21 06:34 06/13/21 08:06 Lactated Ringers IV Infused .Q1H1M PRN Infusion See label comments Ibuprofen 800 mg 06/13/21 15:00 06/14/21 09:28 Ibuprofen 800 Mg Tablet PO 800 mg TID MIKE Administration Multivit/Folic Acid/Iron 1 cap 06/14/21 09:00 06/14/21 09:27 Vitamin Capsule PO 1 cap DAILY MIKE Administration PFSH Acute PFSH: Medical History No pertinent past medical history neghx: htn,dm,thyroid,dvt/pe,herpes ----denies partner with herpes Surgical History No pertinent past surgical history Family History Father Hypertension Family/Other Hypertension Paternal Aunt Denies family history of Colon cancer Ovarian cancer Diabetes Heart disease Breast cancer Uterine cancer Thyroid disease Stroke Social History Smoking and tobacco status: never smoked Alcohol intake: never Female Reproductive History: Date of last menstrual period: 09/25/20 : 4 Vitals/I&O/Wt Last Vital Signs Temp 98.2 F 06/14/21 08:47 Pulse 83 06/14/21 10:33 Resp 16 06/14/21 08:47 BP 126/72 06/14/21 08:08 Pulse Ox 95 06/14/21 10:33 06/13/21 06/14/21 06/14/21 22:59 06:59 14:59 Intake Total 1999 / 44.033 Output Total 350 / 405 Balance 1650 / 4022.033 Weight last 48 hrs Weight 107.048 kg Physical Exam Narrative: EXAM NARRATIVE: General exam is a white female in no apparent distress, with at bedside HEENT: Pupils equally round. Oropharynx clear. Neck is supple no lymphadenopathy or thyromegaly Cardiovascular regular rate and rhythm without murmur Lungs no wheezing. Clear Abdomen is soft nontender with positive bowel sounds. exam is deferred Extremities no cyanosis clubbing or edema Urinary Catheter Management^: Pradhan: Cath Placed During This Visit: yes, but has since been removed by the nurse Reason for Continuing Indwelling Catheter: Decision to DC Catheter Urinary Catheter Date of Insertion: 06/13/21 Urinary Catheter Time of Insertion: 09:30 Date Urinary Catheter Removed: 06/13/21 Time Urinary Catheter Discontinued: 13:12 A&P Assessment and plan (1) COVID-19: Patient is positive for Covid. Symptoms started 7 to 8 days ago. Currently her symptoms of fever, and shortness of breath have gone away and she is able to ambulate around the room without any difficulty. Her oxygen saturations have been recorded over 95% and greater on room air. I discussed with her her diagnosis, and the no particular treatment currently is recommended. I encouraged her to hydrate well in her recovery and to return for any recurrence of shortness of breath. She was given an oximeter with instructions to return if she becomes hypoxic with saturations less than 92%. Status: Acute Additional A&P Information Successful spontaneous vaginal delivery at 39-4/7 weeks Consult Attestations Medical Necessity Statement: As per primary Time Spent in Patient Care: Greater than 35 minutes Coding Level of Care Code Acute Clinic Manager for Chg Fwd Diagnoses COVID-19 U07.1
--- NOTE | 2021-06-14 11:51 | P.DS_ITS ---
Discharge Providers DATA CENTER OPERATOR Date of Admission: 06/13/21 06:32 Date of Discharge: 06/14/21 Attending Provider at Admission: Ladan Leo MD Attending Provider at Discharge: Ladan Leo MD Primary Care Provider: Marisol Dallas MD Reason for Visit Reason for Visit: contractions Hospital Course Hospital Course Mrs. Hardy 30-year-old female status post spontaneous vaginal delivery. Positive for Covid 19. Evaluated by hospitalist patient is okay to go home. She was given a pulse ox monitor her O2, and instruction given is to return to the hospital if she experiences any shortness of breath, fever or worsening of symptoms. She was also counseled regarding pelvic rest, she is afebrile and hemodynamically stable. Tolerating diet well. Ambulating without difficulty. Information Peripartum Data: Delivery Method: Vaginal Physical Exam Narrative: EXAM NARRATIVE: GA; alert and oriented x 3 HEENT: normal Breasts: engorged Nipples - skin intact Lungs; clear to auscultation Heart: regular rhythm, no murmurs. Abd: Appropriately tender. BS+. Uterine fundus below umbilicus. No Fundal Tenderness. Perineum: normal lochia. Extremities: no edema, no cyanosis, no tenderness. Urinary Catheter Management^: Pradhan: Cath Placed During This Visit: yes, but has since been removed by the nurse Reason for Continuing Indwelling Catheter: Decision to DC Catheter Urinary Catheter Date of Insertion: 06/13/21 Urinary Catheter Time of Insertion: 09:30 Date Urinary Catheter Removed: 06/13/21 Time Urinary Catheter Discontinued: 13:12 Discharge Data Data Completed and Pending: Pending at discharge Category Date Time Status Pathology: Surgic al [PTH] Routine Pth 06/14/21 08:56 Received Labs from last 24 hours 06/14/21 06/14/21 10:18 01:45 WBC 6.7 RBC 4.14 Hgb 10.1 L Hct 32.2 L MCV 77.8 L MCH 24.4 L MCHC 31.4 RDW 16.1 H Plt Count 145 MPV 10.2 Specimen Type Arterial Sample Site Radial, left ABG pH 7.41 ABG pCO2 34.8 L ABG pO2 72.7 L ABG HCO3 22.2 ABG Base Excess -2.0 Kirill Test Pos Hematocrit 31.4 L O2 Delivery Device Room air FiO2 21.0 Leadership Development Consultant ID Monro Vitals: Last Vital Signs Temp 98.2 F 06/14/21 08:47 Pulse 83 06/14/21 10:33 Resp 16 06/14/21 08:47 BP 126/72 06/14/21 08:08 Pulse Ox 95 06/14/21 10:33 Discharge Plan Discharge Patient Disposition: Home Condition: Stable Prescriptions: New ibuprofen 800 mg tablet 800 mg PO TID PRN (Reason: pain) Qty: 60 RF: 0 Colace 100 mg capsule 100 mg PO BID Qty: 60 RF: 0 acetaminophen 325 mg capsule 325 mg PO Q4H PRN (Reason: fever or pain) Qty: 60 RF: 0 Continued ferrous sulfate 325 mg (65 mg iron) tablet 325 mg PO TID Qty: 60 RF: 3 prenat.vits,carissa,[id number]-xpixv Tablet 1 tab PO DAILY RF: 0 Discharge Orders: Discharge Order (Routine); Ordered 06/14/21 Ordered By: Ed Tran Referrals: Ed Tran MD [Physician] - 6 Weeks Discharge Diet: Usual diet Discharge Activity: Increase activity as tolerated Patient Instructions: Vaginal Delivery (DC), Vaginal Delivery (GEN), Viral Syndrome (DC), Viral Syndrome (GEN), Acute Cough in Children (GEN), Acute Cough (GEN), Viral Syndrome in Children (DC), Viral Syndrome in Children (GEN), Opioid Safety Activity Restrictions/Additional Instructions: 1. Please call [facility] on next working day to make your appointment in 6 weeks. 2. Please stay home until you come back to the clinic on first post-operative check up. 3. Please follow instructions on your medications CAREFULLY. 4. If you have abdominal incision, do not cover it unless dressing is necessary because of drainage. OK to shower, but avoid bath. Leave steri-strips until they fall off. If they are still on one week after surgery, you may remove them. 5. If you had vaginal surgery or vaginal repair, Dr. Tran may instruct you to take SITZ bath. 6. Yellow, blood tinged odorous vaginal discharge is usually normal after hysterectomy or vaginal surgeries. 7. No sexual intercourse, tampons, or douches until you are completely released from the post-operative care. 8. Avoid constipation by eating right and maybe using some Metamucil or Milk of Magnesia. 9. All prescription refills are given during the working hours. Please do no wait till it runs out. Call the clinic at [phone] before your medication runs out. The clinic will get in touch with your doctor to prescribe medications if necessary. 10. Please remain within 40 mile radius from our hospital because emergencies do happen now and then during the post-operative period. 11. If you have stairs at home, take one step at a time slowly and minimize the number of trips. It helps to stay in one floor for the next few days. No lifting except what you can lift by one hand until you are released from the post-operative care. 12. Driving is discouraged until you are well healed. It may be 3-4 weeks before you feel strong enough to drive. You should be able to turn and look through the rear window without pain and you should be able to push the brake pedal very hard without pain before you drive. No fast rules, but SAFETY should be your primary concern. DO NOT drive if you are on sedating medications such as narcotics. 13. Call the clinic (during working hours) to make urgent appointment or go to the Emergency room, if any of the following occurs: i. Vaginal bleeding becomes heavy, more than a period. ii. Incision becomes red and sore, or drains pus. iii. Your temperature is over 100.4 or you have chill. iv. IV site becomes red and swollen (a little ``knot?? is usually OK) v. Persistent nausea and vomiting vi. Persistent constipation or diarrhea vii. Rash or allergic reaction to medications. Discharge Attestations DATA CENTER OPERATOR Time Spent in Discharge Care*: greater than 30 min Coding Level of Care Code Acute Building Inspection Engineer for Janna Aviles
--- NOTE | 2021-06-14 18:09 | PC.NURSE ---
Patient given pulse oximeter prior to discharge.
== END 2021-06-14 16:05 | disposition home or self-care (01) | DRG 805 ==
LOC: OPOB 06:33 → OBGYN 06:33
PROVIDERS: Obstetrics & Gynecology; Admitting Provider Obstetrics & Gynecology; PCP Family Medicine; Visit Provider Obstetrics & Gynecology
DX: O98.52 Other viral diseases complicating childbirth (principal); U07.1 COVID-19; Z37.0 Single live birth; O69.81X0 Labor and delivery complicated by cord around neck, without compression, not applicable or unspecified; O76 Abnormality in fetal heart rate and rhythm complicating labor and delivery; O99.02 Anemia complicating childbirth; D64.9 Anemia, unspecified; O99.213 Obesity complicating pregnancy, third trimester; E66.9 Obesity, unspecified; Z3A.39 39 weeks gestation of pregnancy
CPT/HCPCS: 36415; 36600; 51702; 59409; 82803; 85025; 85027; 88307; J2795

== ENCOUNTER → 2023-03-20 08:54 | Outpatient (BNVA) | payer OTHER, SELFPAY | PROVIDERS: PCP Family Medicine; Visit Provider Nurse Practitioner Family | DX: E04.9 Nontoxic goiter, unspecified (principal); R63.5 Abnormal weight gain; Z13.29 Encounter for screening for other suspected endocrine disorder; D50.9 Iron deficiency anemia, unspecified; Z71.3 Dietary counseling and surveillance; Z68.41 Body mass index [BMI] 40.0-44.9, adult | CPT/HCPCS: 80053; 82728; 83550; 84439; 84443; 84480; 85025 ==

== ENCOUNTER 2023-04-10 10:20 | Outpatient (CLI) | payer OTHER, SELFPAY ==
--- NOTE | 2023-04-10 10:45 | US_ITS ---
WS: [id number] ULTRASOUND THYROID TECHNIQUE: Ultrasound of the thyroid. CLINICAL INFORMATION: E04.9 - Nontoxic goiter, unspecified COMPARISON: FINDINGS: Thyroid: Right and left thyroid lobes are normal in size and echotexture. No thyroid nodules are pres ent. Right thyroid lobe: 4.8 cm x 1.2 cm x 1.2 cm Left thyroid lobe: 4.6 cm x 1.4 cm x 1.2 cm. Isthmus: 0.2 mm. Cervical lymphadenopathy: None. US/US thyroid [id number] IMPRESSION: Normal thyroid ultrasound examination.
== END 2023-04-10 10:21 | disposition home or self-care (01) ==
PROVIDERS: PCP Nurse Practitioner Family; Visit Provider Nurse Practitioner Family
DX: E04.9 Nontoxic goiter, unspecified (principal); R63.5 Abnormal weight gain
CPT/HCPCS: 76536; 80053; 82728; 83540; 83550; 84439; 84443; 84480; 85025

== ENCOUNTER → 2023-12-03 15:19 | Outpatient (BNVA) | payer OTHER, SELFPAY | PROVIDERS: PCP Nurse Practitioner Family; Visit Provider Nurse Practitioner Family | DX: R52 Pain, unspecified (principal); B34.9 Viral infection, unspecified; R50.9 Fever, unspecified | CPT/HCPCS: 87400; 87426 ==